=== PATIENT | male | born 1990 | race Caucasian/White ===

== ENCOUNTER 2017-05-01 15:29 | Emergency (ER) | payer OTHER ==
[~2017-05-01] VITALS: Ht 152.4 cm; Wt 66.7 kg
[2017-05-01 15:31] VITALS: BP 120/74
[2017-05-01] MEDS ORDERED: LIDOCAINE 1%, 10ML ONE ×2 (15:55→17:07)
[2017-05-01] MEDS ORDERED: DIPH,PERTUSS(ACELL),TET VAC/PF 0.5 ML IM-VACC ONE ×2 (15:55→16:00)
[2017-05-01] MEDS ORDERED: PLEASE ENTER ALLERGIES MC SCH (16:00)
[2017-05-01] MEDS ORDERED: LIDOCAINE 1%, 10ML INFIL ONE (16:00)
== END 2017-05-01 18:16 | disposition home or self-care (01) ==
LOC: ED 18:00
DX: S61.211A Laceration without foreign body of left index finger without damage to nail, initial encounter (principal); S61.213A Laceration without foreign body of left middle finger without damage to nail, initial encounter; W25.XXXA Contact with sharp glass, initial encounter; Y93.89 Activity, other specified; Y92.098 Other place in other non-institutional residence as the place of occurrence of the external cause; Y99.8 Other external cause status
CPT/HCPCS: 12041; 90471; 90715